=== PATIENT | female | born 1980 | race Caucasian/White ===

== ENCOUNTER 2025-02-19 05:44 | Emergency (ER) | payer OTHER ==
[~2025-02-19] VITALS: Ht 157.5 cm; Wt 59.0 kg
[2025-02-19 05:51] VITALS: BP 147/78
[2025-02-19] MEDS ORDERED: ONDANSETRON ODT 4 MG TAB.RAPDIS ONE (05:58)
[2025-02-19] MEDS: ONDANSETRON ODT 4 MG TAB.RAPDIS SL ONE (06:01)
[2025-02-19 06:08] LABS: PLATELET COUNT (AUTO) 362 K/uL (179-408); RED BLOOD CELL COUNT(AUTO) 4.62 MIL/uL (3.63-4.92); RED CELL DISTRIBUTION WIDTH 14.0 % (12.3-17.7); WHITE BLOOD COUNT (AUTO) 17.7 K/uL (3.8-11.8)
[2025-02-19] MEDS ORDERED: ONDANSETRON 4 MG/2 ML VIAL ONE (06:12)
[2025-02-19] MEDS: ONDANSETRON 4 MG/2 ML VIAL IV ONE (06:15)
[2025-02-19] MEDS: IV NORMAL SALINE 500 ML BAG IV ONE (06:15)
[2025-02-19 06:18] LABS: CREATININE 0.8 mg/dL (0.6-1.3); SODIUM SERUM 143 mmol/L (136-145); UREA NITROGEN, BLOOD 13 mg/dL (7-18)
[2025-02-19 06:24] LABS: ASPARTATE AMINOTRANSFERASE 18 U/L (15-37); TOTAL PROTEIN, SERUM 7.5 g/dL (6.4-8.2)
[2025-02-19] MEDS ORDERED: diphenhydrAMINE 50 MG/1 ML VIAL ONE (06:30)
[2025-02-19] MEDS ORDERED: METOCLOPRAMIDE HCL 10 MG/2 ML VIAL ONE (06:30)
[2025-02-19] MEDS: METOCLOPRAMIDE HCL 10 MG/2 ML VIAL IV ONE (06:37)
[2025-02-19] MEDS: diphenhydrAMINE 50 MG/1 ML VIAL IV ONE (06:37)
[2025-02-19] MEDS ORDERED: DICY-17 PO (07:06)
[2025-02-19] MEDS ORDERED: ONDA-243 PO (07:06)
[2025-02-19] MEDS ORDERED: FAMO-132 PO (07:06)
[2025-02-19] MEDS: IV NORMAL SALINE 1000 ML BAG IV ONE (07:08)
[2025-02-19] MEDS ORDERED: LIDOCAINE VISCUS 2% 15 ML UDC ONE (07:14)
[2025-02-19] MEDS ORDERED: FAMOTIDINE. 20 MG/2 ML VIAL IV ONE (07:15)
[2025-02-19] MEDS ORDERED: MAG HYDROX/AL HYDROX/SIMETH 30 ML LIQUID UDC ONE (07:16)
[2025-02-19] MEDS: MAG HYDROX/AL HYDROX/SIMETH 30 ML LIQUID UDC PO ONE (07:23)
[2025-02-19] MEDS: FAMOTIDINE. 20 MG/2 ML VIAL IV ONE (07:23)
[2025-02-19] MEDS: LIDOCAINE VISCUS 2% 15 ML UDC MM ONE (07:23)
[2025-02-19 07:46] LABS: *BILIRUBIN,URIN NEGATIVE (NEGATIVE); *BLOOD, URINE NEGATIVE (NEGATIVE); *CLARITY,URINE CLEAR (CLEAR); *COLOR,URINE YELLOW (YELLOW); *KETONES,URINE 1+ (NEGATIVE); *PROTEIN,URINE NEGATIVE (NEGATIVE); *UROBILINOGEN,URINE 0.2 E.U./dl (NORMAL); LEUKOCYTE ESTERASE ,URINE NEGATIVE (NEGATIVE); NITRITE, URINE NEGATIVE (NEGATIVE); UGLUCOSE TRACE (NEGATIVE)
[2025-02-19 07:51] LABS: *URINE HCG, QUAL NEGATIVE (NEGATIVE)
[2025-02-19] MEDS: DICYCLOMINE HCL 10 MG CAPSULE PO STA (07:58)
[2025-02-19] MEDS ORDERED: MORPHINE SULFATE 4 MG/1 ML DISP.SYRIN ONE (08:10)
[2025-02-19] MEDS: MORPHINE SULFATE 4 MG/1 ML DISP.SYRIN IV ONE (08:19)
[2025-02-19 08:51] LABS: SQUAMOUS EPITHELIAL CELL,UR FEW /HPF (NONE SEEN)
[2025-02-19 08:52] LABS: URINE AMORPHOUS PHOSPHATES MANY /HPF
[2025-02-19 08:58] VITALS: BP 119/83; TEMP 98; O2SAT 98
== END 2025-02-19 09:00 | disposition home or self-care (01) ==
LOC: ER 05:59
DX: R11.2 Nausea with vomiting, unspecified (principal); R19.7 Diarrhea, unspecified
CPT/HCPCS: 99284; 96374; 96375; 96361; 80053; 81001; 84703; 83690; 83735; 85025; 86140; 36415; J1200; J1308; J2765; J2405; J2270; J7040 ×2; A4606; A4663; Q0162